=== PATIENT | male | born 1960 | race African-American/Black ===

== ENCOUNTER 2019-11-16 10:19 | Emergency (ER) | payer MEDICAID ==
[~2019-11-16] VITALS: Ht 172.7 cm; Wt 65.0 kg
[2019-11-16] MEDS ORDERED: TETANUS, DIPHTHERIA, PERTUSSIS VAC/PF 0.5ML (>7YR OLD) IM ONE (12:15)
[2019-11-16] MEDS ORDERED: AMOXICILLIN/POTASSIUM CLAVULANATE 875/125MG TAB PO ONE (12:15)
[2019-11-16] MEDS ORDERED: SODIUM CHLORIDE 0.9% 1,000 ML IV ONE (12:56)
[2019-11-16] MEDS ORDERED: LORAZEPAM 2MG/ML CPJ IV ONE (13:00)
[2019-11-16] MEDS ORDERED: ONDANSETRON HCL 4MG/2ML INJ IV STA (13:09)
[2019-11-16] MEDS ORDERED: MORPHINE SULFATE 4 MG/ML CPJ (NOT FOR IM USE) IV STA (13:09)
[2019-11-16 13:43] LABS: BASOPHILS % 0.8 % (0.0-2.0); EOSINOPHILS % 2.6 % (0.0-5.0); HEMATOCRIT. 42.9 % (42.0-52.0); HEMOGLOBIN. 14.4 g/dL (14.0-18.0); LYMPHOCYTES % 18.7 % (20.0-50.0); MEAN CORPUSCULAR VOLUME 98.4 fL (80.0-94.0); MEAN PLATELET VOLUME 8.8 fl (7.4-10.4); MONOCYTES % 6.6 % (2.0-8.0); NEUTROPHILS % 71.3 % (40.0-76.0); PLATELET 152 x1000/uL (130-400); RED BLOOD CELL COUNT 4.36 mill/uL (4.7-6.1)
[2019-11-16 13:50] LABS: CHLORIDE 105 mEq/L (98-107)
[2019-11-16 13:54] LABS: ETHANOL BLOOD < 10 mg/dL
[2019-11-16] MEDS ORDERED: HYDROCODONE/ACETAMINOPHEN 5/325MG TABLET PO ONE (14:00)
[2019-11-16] MEDS ORDERED: CHLORDIAZEPOXIDE 25MG CAPSULE PO ONE (14:00)
[2019-11-16 14:13] LABS: METHADONE URINE SCREEN NEGATIVE (NEGATIVE)
[2019-11-16 14:14] LABS: *AMPHETAMINES SCREEN URINE NEGATIVE (NEGATIVE); *BARBITURATES SCREEN URINE NEGATIVE (NEGATIVE); *BENZODIAZEPINES SCREEN URINE NEGATIVE (NEGATIVE); *COCAINE SCREEN URINE NEGATIVE (NEGATIVE); CANNABINOID URINE SCREEN PRESUMTIVE POSITIVE (NEGATIVE); OPIATES URINE SCREEN NEGATIVE (NEGATIVE); PHENCYCLIDINE URINE SCREEN NEGATIVE (NEGATIVE)
[2019-11-16 15:03] VITALS: BP 164/83
== END 2019-11-16 15:31 | disposition home or self-care (01) ==
LOC: ER 10:19
DX: S63.124A Dislocation of interphalangeal joint of right thumb, initial encounter (principal); I10 Essential (primary) hypertension; F17.200 Nicotine dependence, unspecified, uncomplicated; X58.XXXA Exposure to other specified factors, initial encounter; Y93.89 Activity, other specified; Y92.89 Other specified places as the place of occurrence of the external cause; Y99.8 Other external cause status
CPT/HCPCS: 26700; 36415; 73140; 80053; 80305; 80320; 84484; 85025; 90471; 90715; 93005; 96374; 96375; 99285; J2060; J2270; J2405; J7030; G0480

== ENCOUNTER 2019-12-20 18:48 | Emergency (ER) | payer MEDICAID ==
[~2019-12-20] VITALS: Ht 165.1 cm; Wt 64.0 kg
[2019-12-20 22:00] VITALS: BP 139/90
== END 2019-12-20 22:30 | disposition home or self-care (01) ==
LOC: ER 18:48
DX: F10.129 Alcohol abuse with intoxication, unspecified (principal); F91.8 Other conduct disorders; I10 Essential (primary) hypertension; Y90.9 Presence of alcohol in blood, level not specified; Z78.1 Physical restraint status
CPT/HCPCS: 99283

== ENCOUNTER 2019-12-21 11:47 | Inpatient (IN) | payer MEDICAID ==
[~2019-12-21] VITALS: Ht 177.8 cm; Wt 60.4 kg
[2019-12-21] MEDS ORDERED: SODIUM CHLORIDE 0.9% 1,000 ML IV ONE (11:55)
[2019-12-21] MEDS ORDERED: NICARDIPINE 40MG/200ML PREMIX 200 ML IV STA (12:18)
[2019-12-21] MEDS ORDERED: LABETALOL 5MG/ML SYR 20 MG/4 ML SYRINGE IV ONE (12:30)
[2019-12-21] MEDS ORDERED: LEVETIRACETAM 500MG PREMIX 100 ML IV ONE (12:30)
[2019-12-21 12:49] LABS: EOSINOPHILS % 0.4 % (0.0-5.0); HEMATOCRIT. 41.2 % (42.0-52.0); HEMOGLOBIN. 14.1 g/dL (14.0-18.0); MEAN CORPUSCULAR HEMOGLOBIN 33.1 pg (28.0-32.0); MEAN PLATELET VOLUME 8.6 fl (7.4-10.4); MONOCYTES % 6.3 % (2.0-8.0); NEUTROPHILS % 80.3 % (40.0-76.0); PLATELET 149 x1000/uL (130-400); RED BLOOD CELL COUNT 4.25 mill/uL (4.7-6.1); RED CELL DISTRIBUTION WIDTH 14.3 % (11.6-14.6)
[2019-12-21 12:57] LABS: PROTHROMBIN TIME 10.1 sec (9.6-11.0)
[2019-12-21 12:59] LABS: CHLORIDE 102 mEq/L (98-107)
[2019-12-21 13:03] LABS: ETHANOL BLOOD < 10 mg/dL
[2019-12-21 13:06] LABS: LDL CHOLESTEROL 118 mg/dL (5-100)
[2019-12-21 13:07] LABS: CREATINE KINASE 569 IU/L (39-308)
[2019-12-21] MEDS ORDERED: MORPHINE SULFATE 2 MG/ML CPJ (NOT FOR IM USE) IV PRN (13:15)
[2019-12-21] MEDS ORDERED: IOHEXOL-350 100 ML BOTTLE ONE (13:44)
[2019-12-21] MEDS: DEXT 5%/LACTATED RINGERS 1,000 ML IV SCH (13:50)
[2019-12-21] MEDS ORDERED: CLONIDINE 0.1MG TABLET PO PRN (14:00)
[2019-12-21] MEDS ORDERED: ONDANSETRON HCL 4MG/2ML INJ IV PRN (14:00)
[2019-12-21] MEDS ORDERED: DIPHENHYDRAMINE 50MG/ML VIAL IV PRN (14:00)
[2019-12-21] MEDS ORDERED: ACETAMINOPHEN 325MG TABLET PO PRN (14:00)
[2019-12-21 14:39] LABS: PHOSPHORUS 2.7 mg/dL (2.5-4.9)
[2019-12-21 14:44] LABS: CREATINE KINASE MB FRACTION 3.4 ng/mL (0.5-3.6)
[2019-12-21] MEDS ORDERED: IPRATROPIUM/ALBUTEROL 0.5-3(2.5)MG/3ML NEB HHN PRN (15:00)
[2019-12-21] MEDS ORDERED: GUAIFENESIN-DM 200MG-20MG/10ML UDC PO PRN (15:00)
[2019-12-21 15:49] LABS: CLARITY URINE CLEAR (CLEAR); COLOR URINE YELLOW (YELLOW); KETONES URINE NEGATIVE (NEGATIVE); LEUKOCYTE ESTERASE URINE NEGATIVE (NEGATIVE); NITRITE URINE NEGATIVE (NEGATIVE); OCCULT BLOOD URINE NEGATIVE (NEGATIVE); PROTEIN URINE NEGATIVE (NEGATIVE); SPECIFIC GRAVITY URINE 1.032 (1.005-1.030); UROBILINOGEN URINE 0.2 E.U./dL (0.2-1.0)
[2019-12-21 16:34] LABS: *BENZODIAZEPINES SCREEN URINE NEGATIVE (NEGATIVE)
[2019-12-21 16:35] LABS: *COCAINE SCREEN URINE NEGATIVE (NEGATIVE); METHADONE URINE SCREEN NEGATIVE (NEGATIVE); OPIATES URINE SCREEN PRESUMTIVE POSITIVE (NEGATIVE); PHENCYCLIDINE URINE SCREEN NEGATIVE (NEGATIVE)
[2019-12-21 16:36] LABS: *AMPHETAMINES SCREEN URINE NEGATIVE (NEGATIVE); *BARBITURATES SCREEN URINE NEGATIVE (NEGATIVE); CANNABINOID URINE SCREEN PRESUMTIVE POSITIVE (NEGATIVE)
[2019-12-21] MEDS ORDERED: SODIUM CHLORIDE 0.9% 1,000 ML IV SCH (17:00)
[2019-12-21] MEDS ORDERED: GUAIFENESIN-DM 200MG-20MG/10ML UDC PO ONE (17:15)
[2019-12-21] MEDS ORDERED: NICOTINE 21MG PATCH TD NR (19:44)
[2019-12-21] MEDS ORDERED: FOLIC ACID/VITAMIN B COMP W-C TABLET PO NR (19:45)
[2019-12-21] MEDS ORDERED: MULTIVITAMINS,THER W-MINERALS TABLET PO NR (19:46)
[2019-12-21] MEDS ORDERED: NICARDIPINE 100 MG in SODIUM CHLORIDE 0.9% 60 ML IV PRN ×4 (20:30)
[2019-12-21] MEDS ORDERED: LEVETIRACETAM 500MG PREMIX 100 ML IV SCH (22:00)
[2019-12-22] VITALS (76 sets, daily range): BP systolic 100–162; BP diastolic 53–111
[2019-12-22] MEDS: LEVETIRACETAM 500MG PREMIX 100 ML IV SCH ×2 (04:36→20:16)
[2019-12-22 05:53] LABS: BASOPHILS % 0.6 % (0.0-2.0); EOSINOPHILS % 1.3 % (0.0-5.0); HEMATOCRIT. 40.9 % (42.0-52.0); HEMOGLOBIN. 13.9 g/dL (14.0-18.0); LYMPHOCYTES % 23.8 % (20.0-50.0); MEAN PLATELET VOLUME 8.8 fl (7.4-10.4); MONOCYTES % 10.5 % (2.0-8.0); NEUTROPHILS % 63.8 % (40.0-76.0); PLATELET 159 x1000/uL (130-400); RED BLOOD CELL COUNT 4.21 mill/uL (4.7-6.1); RED CELL DISTRIBUTION WIDTH 14.1 % (11.6-14.6)
[2019-12-22] MEDS: DEXT 5%/LACTATED RINGERS 1,000 ML IV SCH ×2 (05:57→22:29)
[2019-12-22 05:59] LABS: CHLORIDE 103 mEq/L (98-107)
[2019-12-22 06:06] LABS: LDL CHOLESTEROL 122 mg/dL (5-100)
[2019-12-22 06:07] LABS: HDL CHOLESTEROL 68 mg/dL (40-59)
[2019-12-22 06:26] LABS: VITAMIN B12 SERUM 619 pg/mL (211-911)
[2019-12-22] MEDS: MULTIVITAMINS,THER W-MINERALS TABLET PO SCH (08:51)
[2019-12-22] MEDS: FOLIC ACID/VITAMIN B COMP W-C TABLET PO SCH (08:52)
[2019-12-22] MEDS: NICOTINE 21MG PATCH TD SCH (08:52)
[2019-12-22] MEDS ORDERED: GADOBENATE DIMEGLUMINE 529 MG/ML 10ML IV ONE (11:45)
[2019-12-22] MEDS: MORPHINE SULFATE 2 MG/ML CPJ (NOT FOR IM USE) IV PRN ×2 (13:34→22:33)
[2019-12-22] MEDS ORDERED: DEXTROSE 50% WATER 50ML SYRINGE IV PRN (19:45)
[2019-12-22] MEDS: INSULIN LISPRO 100 UNITS/ML SUBCUT SCH (20:21)
[2019-12-22] MEDS: BLOOD SUGAR DIAGNOSTIC STRIP TEST SCH (20:21)
[2019-12-22] MEDS ORDERED: ZOLPIDEM TARTRATE 5MG TABLET PO PRN (21:00)
[2019-12-23] VITALS (15 sets, daily range): BP systolic 101–167; BP diastolic 36–90
[2019-12-23 06:03] LABS: CHLORIDE 105 mEq/L (98-107)
[2019-12-23 06:07] LABS: BASOPHILS % 0.9 % (0.0-2.0); EOSINOPHILS % 3.6 % (0.0-5.0); HEMOGLOBIN. 13.7 g/dL (14.0-18.0); LYMPHOCYTES % 29.8 % (20.0-50.0); MEAN CORPUSCULAR HEMOGLOBIN 32.1 pg (28.0-32.0); MEAN PLATELET VOLUME 8.7 fl (7.4-10.4); MONOCYTES % 10.7 % (2.0-8.0); PLATELET 162 x1000/uL (130-400); RED BLOOD CELL COUNT 4.28 mill/uL (4.7-6.1); RED CELL DISTRIBUTION WIDTH 14.2 % (11.6-14.6)
[2019-12-23] MEDS: BLOOD SUGAR DIAGNOSTIC STRIP TEST SCH ×4 (06:35→19:52)
[2019-12-23] MEDS: INSULIN LISPRO 100 UNITS/ML SUBCUT SCH ×4 (06:35→19:56)
[2019-12-23] MEDS: FOLIC ACID/VITAMIN B COMP W-C TABLET PO SCH (08:33)
[2019-12-23] MEDS: NICOTINE 21MG PATCH TD SCH (08:33)
[2019-12-23] MEDS: MULTIVITAMINS,THER W-MINERALS TABLET PO SCH (08:33)
[2019-12-23] MEDS: LEVETIRACETAM 500MG PREMIX 100 ML IV SCH ×2 (08:33→21:21)
[2019-12-23] MEDS: CHLORDIAZEPOXIDE 25MG CAPSULE PO SCH ×3 (12:31→20:56)
[2019-12-23] MEDS: MORPHINE SULFATE 2 MG/ML CPJ (NOT FOR IM USE) IV PRN (15:42)
[2019-12-24] VITALS: BP 147/76
[2019-12-24] MEDS: CHLORDIAZEPOXIDE 25MG CAPSULE PO SCH ×2 (06:29→13:24)
[2019-12-24] MEDS: BLOOD SUGAR DIAGNOSTIC STRIP TEST SCH ×3 (06:29→17:09)
[2019-12-24 08:00] VITALS: BP 117/75
[2019-12-24] MEDS: INSULIN LISPRO 100 UNITS/ML SUBCUT SCH ×3 (08:10→17:11)
[2019-12-24] MEDS: LEVETIRACETAM 500MG PREMIX 100 ML IV SCH ×2 (09:00→10:46)
[2019-12-24] MEDS: NICOTINE 21MG PATCH TD SCH (09:07)
[2019-12-24] MEDS: FOLIC ACID/VITAMIN B COMP W-C TABLET PO SCH (09:07)
[2019-12-24] MEDS: MULTIVITAMINS,THER W-MINERALS TABLET PO SCH (09:07)
[2019-12-24 12:00] VITALS: BP 109/73
[2019-12-24 16:00] VITALS: BP 119/68
[2019-12-24] MEDS ORDERED: NEPVIT PO (17:06)
[2019-12-24] MEDS ORDERED: L25 PO (17:06)
[2019-12-24] MEDS ORDERED: KEPP500 MT (17:06)
[2019-12-24] MEDS ORDERED: ATOR20TA65 MT (17:07)
[2019-12-24 17:15] VITALS: BP 117/71
[2019-12-24] MEDS ORDERED: NICO-645 TP (17:20)
== END 2019-12-24 18:14 | disposition home or self-care (01) | DRG 44 ==
LOC: ER 12:08 → MICUNO 12:39 → EDBEDREQSVC 12:41 → EDBEDREQTM 12:41 → EDBEDREQ 12:41 → ENRESERV 22:56 → 7WST 12-23 13:23
PROVIDERS: ADMIT Internal Medicine; ATTEND Internal Medicine
DX: I61.9 Nontraumatic intracerebral hemorrhage, unspecified (principal); G93.6 Cerebral edema; G93.49 Other encephalopathy; E11.65 Type 2 diabetes mellitus with hyperglycemia; I65.03 Occlusion and stenosis of bilateral vertebral arteries; I10 Essential (primary) hypertension; M62.82 Rhabdomyolysis; J40 Bronchitis, not specified as acute or chronic; E78.5 Hyperlipidemia, unspecified; F10.20 Alcohol dependence, uncomplicated; F12.90 Cannabis use, unspecified, uncomplicated; F17.210 Nicotine dependence, cigarettes, uncomplicated; Z71.51 Drug abuse counseling and surveillance of drug abuser; Z71.41 Alcohol abuse counseling and surveillance of alcoholic
CPT/HCPCS: 36415; 70496; 70498; 70553; 71045; 80048; 80053; 80061; 80305; 80320; 81003; 82550; 82553; 82607; 82962; 83036; 83605; 83721; 83735; 83880; 84100; 84443; 84484; 85025; 93005; 93306; 93970; 96365; 99291; A9577; J1200; J1815; J1953; J2270; J3490; J7030; J7050; Q9967; G0480